=== PATIENT | male | born 1965 | race Caucasian/White ===

== ENCOUNTER → 2018-11-14 | Outpatient (CLI) | payer BC ==
--- NOTE | 2018-11-14 16:16 | KCIC ---
MR of the right knee Indication: Right knee pain medially since August. Soccer injury. Comparison: None Technique: The standard multiplanar sequences are obtained. FINDINGS: Artifact: No significant image degradation. Medial meniscus:Radial tear at the posterior horn the medial meniscus, with mild meniscal extrusion from the joint. Lateral meniscus: Intact. Anterior cruciate ligament: Intact. Posterior cruciate ligament: Intact Medial collateral ligament: Intact. Lateral structures: * Iliotibial band: Intact. * Lateral collateral ligament: Intact. * Biceps femoris tendon: Intact * Popliteus tendon attachment: Intact Extensive mechanism: * Patellar tendon: Intact * Quadriceps tendon: Intact * Retinacular structures: Intact Fluid: Small joint effusion. No significant Aragon's cyst. Intra-articular bodies: None visualized Joint compartments * patellofemoral joint: Moderate chondromalacia of the patella. * medial compartment:Intact * lateral compartment: Mild cartilage heterogeneity of the lateral tibial plateau. Bones: No aggressive bone destruction or acute fracture. Soft tissue: Prominent serpiginous tubular vascular structures are identified around the distal femur and to lesser extent around the proximal lateral tibia. There is also extension of some of these vascular channels into prominent intraosseous blood vessels of the proximal tibia and to a lesser extent distal femur. Impression: 1. Medial meniscal tear with mild extrusion. 2. Extensive tortuous vascular structures around the knee, mostly in the soft tissues. Nonspecific, but could represent a hemangioma or vascular malformation. Electronically signed by: Alex Lowe MD (11/14/2018 1:58 PM) [id number]
== END | disposition home or self-care (01) ==
LOC: KCIC MRI 12:28
PROVIDERS: ATTEND Orthopaedic Surgery
DX: S83.241A Other tear of medial meniscus, current injury, right knee, initial encounter (principal); M22.41 Chondromalacia patellae, right knee; M25.461 Effusion, right knee; X58.XXXA Exposure to other specified factors, initial encounter; Y93.89 Activity, other specified; Y92.89 Other specified places as the place of occurrence of the external cause; Y99.8 Other external cause status
CPT/HCPCS: 73721